=== PATIENT | female | born 1930 | race Two or more races ===

== ENCOUNTER 2017-03-27 18:39 | Emergency (ER) | payer OTHER ==
[~2017-03-27] VITALS: Ht 147.3 cm; Wt 47.6 kg
[2017-03-27 19:28] LABS: Basophils # (auto) 0 uL; Basophils % (auto) 0.6 % (0.0-2.0); CONDITION Y; Eosinophils # (auto) 0.1 uL; Eosinophils % (auto) 1.8 % (0.0-7.0); Hematocrit 39.4 % (36.0-46.0); Hemoglobin 13.1 g/dL (12.2-16.2); Lymphocytes % (auto) 50.6 % (10.0-50.0); Mean Corpuscular Hgb Conc. 33.2 g/dL (32.0-36.0); Mean Corpuscular Volume 87.4 fL (80.0-100.0); Mean Platelet Volume 8.4 fL (7.4-10.4); Monocytes # (auto) 0.7 uL; Monocytes % (auto) 11.7 % (0.0-12.0); Neutrophils # (auto) 2.1 uL; Neutrophils % (auto) 35.3 % (37.0-80.0); Platelet Count (auto) 309 10^3/uL (140-450); Red Cell Distribution Width 13.2 % (11.6-16.0); White Blood Cell 5.9 10^3/uL (4.4-10.8)
[2017-03-27 19:42] LABS: Albumin 3.2 g/dL (3.4-5.0); BUN/Creatinine Ratio 20.6; Calcium 8.2 mg/dL (8.5-10.1)
[2017-03-27 19:45] LABS: Bilirubin, Total 0.2 mg/dL (0.2-1.0); Total Protein 7.8 g/dL (6.4-8.2)
[2017-03-27 21:25] VITALS: BP 150/75
== END 2017-03-27 21:33 | disposition home or self-care (01) ==
LOC: ER 18:44
DX: M25.561 Pain in right knee (principal); M25.571 Pain in right ankle and joints of right foot; E78.5 Hyperlipidemia, unspecified; I10 Essential (primary) hypertension
CPT/HCPCS: 36415; 73564; 80053; 85025; 85379; 93971